=== PATIENT | female | born 1960 | race Caucasian/White ===

== ENCOUNTER 2017-08-29 06:53 | Observation (INO) | payer OTHER ==
[2017-08-27 09:20] LABS: BASOPHILS # (AUTO) 0.1 (0.0-0.1); BASOPHILS % 0.8 % (0.0-1.0); EOSINOPHILS # (AUTO) 0.1 (0.0-0.4); EOSINOPHILS % 0.8 % (0.0-6.0); HEMATOCRIT 41.1 % (34.2-44.1); HEMOGLOBIN 13.6 g/dL (12.0-16.0); LYMPHOCYTES # (AUTO) 1.6 (1.0-3.2); LYMPHOCYTES % 25.6 % (18.0-39.1); MEAN CORPUSCULAR HEMOGLOBIN 28.4 pg (28-32); MEAN CORPUSCULAR HGB CONC 33.1 g/dL (31-35); MEAN CORPUSCULAR VOLUME 85.8 fL (81-99); MONOCYTES # (AUTO) 0.6 (0.2-0.8); MONOCYTES % 9.1 % (4.4-11.3); NEUTROPHILS % 63.1 % (38.7-80.0); PLATELET COUNT 232 x10e3/uL (140-360); RED BLOOD COUNT 4.79 x10e6/uL (3.6-5.1); RED CELL DISTRIBUTION WIDTH 14.5 % (11.7-14.4)
[2017-08-27 09:29] LABS: INR 0.92; PROTHROMBIN TIME 11.6 seconds (11.9-14.5)
[2017-08-27 09:30] LABS: PARTIAL THROMBOPLASTIN TIME 28.3 seconds (23.8-35.5)
--- NOTE | 2017-08-27 09:30 | Diagnostic Imaging Report ---
PROCEDURE: X-RAY CHEST, TWO VIEWS COMPARISON: None. INDICATIONS: PREOPERATIVE CHEST X-RAY, CERVICAL SPINE FUSION SURGERY FINDINGS: LUNGS: No consolidations or edema. PLEURA: No effusions or pneumothorax. HEART \T\ MEDIASTINUM: The heart is within normal size-limits. BONES \T\ SOFT TISSUES: Mild degenerative changes of the spine. CONCLUSION: No acute thoracic abnormality. Lionel Escalona D.O. Dictated by: Lionel Escalona D.O. on 08/27/2017 at 9:31 Electronically approved by: Lionel Escalona D.O. on 08/27/2017 at 9:31
[2017-08-27 09:33] LABS: ANION GAP 9.5 mmol/L (8-16); BLOOD UREA NITROGEN 8 mg/dL (7-26); BUN/CREATININE RATIO 11 (6-25); CALCIUM 9.1 mg/dL (8.4-10.2); CARBON DIOXIDE 31 mmol/L (22-29); CHLORIDE 103 mmol/L (98-107); CREATININE, SERUM 0.73 mg/dL (0.57-1.11); EST GLOMERULAR FILTRATION RATE > 60 ML/MIN (60-); GLUCOSE 79 mg/dL (74-118); POTASSIUM 4.5 mmol/L (3.5-5.1); SODIUM 139 mmol/L (136-145)
[2017-08-29] VITALS (7 sets, daily range): BP systolic 100–131; BP diastolic 52–85
[~2017-08-29] VITALS: Ht 177.8 cm; Wt 136.1 kg
[~2017-08-29 06:53] MED LIST: BACITRACIN 50,000 UNIT VIAL ONE; BUPIVACAINE 0.5%/EPI 30 ML SDV INJ ONE; GELATIN SPONGE SZ 100 ONE; SYNTHROID50 MCG PO; THROMBIN FOR SOLN 5,000 UNIT VIAL ONE; TRAZODONE HCL100 MG PO
--- OUTSIDE RECORDS SUMMARY | 2017-08-29 06:56 | XMS REPORT ---
[facility] Address Unknown Phone Unavailable Care Team Providers [employer] Supervisor Name Role Phone BEVERLY JUÁREZ Unavailable Unavailable Problems This patient has no known problems. Allergies, Adverse Reactions, Alerts This patient has no known allergies or adverse reactions. Medications This patient has no known medications. Results Test Description Test Time Test Comments Text Results Atomic Results Result Comments CHEST 2 VIEWS [place] [address] Patient Name: CECILY ROJAS MR # : [id number] : 1960 Age/Sex: 56/F Req #: [id number] Adm Physician: Ordered by: BEVERLY JUÁREZ MD Report #: [id number] Location: OR Room/Bed: Procedure: [id number] DX/CHEST 2 VIEWS Exam Date: 08/27/17 Exam Time: 0915 REPORT STATUS: Signed PROCEDURE: X-RAY CHEST, TWO VIEWS COMPARISON: None. INDICATIONS: PREOPERATIVE CHEST X-RAY, CERVICAL SPINE FUSION SURGERY FINDINGS: LUNGS: No consolidations or edema. PLEURA: No effusions or pneumothorax. HEART T MEDIASTINUM: The heart is within normal size-limits. BONES T SOFT TISSUES: Mild degenerative changes of the spine. CONCLUSION: No acute thoracic abnormality. Milana Escalona D.O. Dictated by: Milana Escalona D.O. on 08/27/2017 at 9:31 Electronically approved by: Milana Escalona D.O. on 08/27/2017 at 9:31 Dictated By: MILANA ESCALONA DO 0 Transcribed By: RADHA on 08/27/17930 COPY TO: BEVERLY JUÁREZ MD
[2017-08-29] MEDS ORDERED: LIDOCAINE HCL (LTA) 4 ML SOLN ONE (07:40)
[2017-08-29] MEDS ORDERED: CEFAZOLIN SOD 2 GM/D5W 50ML 50 ML IV ONE (08:38)
[2017-08-29] MEDS: LACTATED RINGER'S 1,000 ML IV SCH ×2 (10:25→17:49)
[2017-08-29] MEDS ORDERED: ONDANSETRON HCL INJ 2 MG/ML VIAL IV PRN (10:30)
[2017-08-29] MEDS ORDERED: ACETAMINOPHEN 325 MG TAB PO PRN (10:30)
[2017-08-29] MEDS ORDERED: HYDROMORPHONE 2MG/ML INJ IV PRN (10:30)
[2017-08-29] MEDS ORDERED: PROMETHAZINE HCL (IM) 25 MG/ML VIAL IM PRN (10:30)
[2017-08-29] MEDS ORDERED: ZOLPIDEM TARTRATE 5 MG TAB PO PRN (10:30)
[2017-08-29] MEDS ORDERED: MAGNESIUM/ALUMINUM/SIMETHICONE 30 ML UDC PO PRN (10:30)
[2017-08-29] MEDS ORDERED: MORPHINE SULFATE 5 MG/ML VIAL IM PRN (10:30)
[2017-08-29] MEDS ORDERED: MORPHINE SULFATE 2 MG/ML SYR IM PRN (10:45)
[2017-08-29] MEDS ORDERED: FENTANYL CITRATE/PF 100MCG/2 ML INJ ONE ×2 (10:46→18:01)
--- NOTE | 2017-08-29 10:59 | Operative Report ---
DATE OF PROCEDURE: August 29, 2017 PREOPERATIVE DIAGNOSIS: C5-C6 and C6-C7 spondylosis and disk herniations with radiculopathy, M50.120. POSTOPERATIVE DIAGNOSIS: C5-C6 and C6-C7 spondylosis and disk herniations with radiculopathy, M50.120. PROCEDURES 1. C5-C6 anterior cervical diskectomy and microsurgical osteophyte resection and allograft fusion, 14095. 2. C6-C7 anterior cervical diskectomy and microsurgical osteophyte resection and allograft fusion, . 3. Preparation of cortical cancellous allograft, . 4. C5-C6 and C6-C7 anterior cervical plating, . ANESTHESIA: General. INDICATIONS: Patient is a 56-year-old woman who presents with a neck pain radiating to both arms and more recent radiculopathy in the left arm. She was taken to the operating room for 2-level anterior cervical decompression and fusion at C5-C6 and C6-C7. PROCEDURE: After induction of general anesthesia, the patient was placed on the operating table in the supine position. The right side of the neck was prepped and draped in a sterile fashion. The fluoroscopic C-arm was positioned in cross-table lateral orientation. A small transverse incision was created on the right side neck superimposed on the C6 vertebral body as determined by fluoroscopy. The platysma was divided in line with the incision. A subplatysmal dissection was carried out. An avascular plane of dissection was developed medial to sternocleidomastoid muscle, and was followed medial to the carotid sheath and to the anterior border the cervical spine. The deep cervical fascia was opened and the esophagus was retracted to the left. The attachments of the longus coli muscles to the anterolateral aspects of the vertebral bodies of C5-C6 and C6-C7 were divided. The anterior longitudinal ligament was resected. The anterior osteophytes were resected. Retraction was maintained with a self-retaining retractor. A good exposure was obtained. The recurrent laryngeal nerve was not encountered at any point during the surgery. [place] posts were inserted into C5 and C7. The [place] distractor was used to distract both disk spaces simultaneously. The anterior annuli of disks were incised with a #11 blade. The contents of both disks were thoroughly evacuated with angled curettes and pituitary rongeurs. The posterior osteophytes were meticulously drilled with a 2 mm cutting bur on a high-speed drill until they were completely removed. The posterior annulus of the disk, herniated disk material, and the posterior longitudinal ligament were resected layer by layer until the dura was fully exposed and decompressed. The medial aspects of the uncinate processes were resected bilaterally at both levels to further expose and decompress the origins of the corresponding C6 and C7 nerve roots. After satisfactory decompression had been achieved, the end-plates were prepared for fusion. Two pieces of tricortical iliac crest allograft were cut to the size and shapes of the disk spaces, and were inserted into the disk spaces under distraction and fluoroscopic guidance. The distraction was released and distraction posts were removed. A Synthes CSLP variable type anterior cervical plate was selected and was affixed to vertebral bodies of C5, C6 and C7 with 3 pairs of 14 x 4.35 mm screws. All screw holes were drilled and tapped under lateral fluoroscopic guidance. All screws were locked with the appropriate locking screws. An excellent construct was obtained. The wound was copiously irrigated with Bacitracin solution. Meticulous hemostasis was secured. Retractor was removed. The platysma was closed with 3-0 Vicryl sutures. The skin was closed with 4-0 Monocryl sutures in a subcuticular fashion. Steri-Strips and dressing were applied. The patient was awakened, extubated and taken to the postanesthesia care unit in stable condition. No intraoperative complications were encountered. Estimated blood loss was 30 mL. Job#: [id number] CAREN
[2017-08-29] MEDS ORDERED: ONDANSETRON HCL 4 MG ORAL DISINTEGRATING TAB PO PRN (11:15)
[2017-08-29] MEDS: CARISOPRODOL 350 MG TAB PO PRN ×2 (11:50→15:55)
[2017-08-29] MEDS: OXYCODONE/ACETAMINOPHEN 5-325 1 EACH TABLET PO PRN ×3 (11:50→21:30)
[2017-08-29] MEDS: CEFAZOLIN SOD 1 GM VIAL IV SCH ×2 (13:09→21:00)
[2017-08-29] MEDS ORDERED: CEPACOL SORE THROAT LOZENGES PO PRN (13:15)
[2017-08-29] MEDS ORDERED: CEFAZOLIN SOD 1 GM/NS 50ML 50 ML IV SCH (14:00)
[2017-08-29] MEDS ORDERED: GLYCOPYRROLATE INJ 1MG/ 5 ML SYR ONE (17:45)
[2017-08-29] MEDS ORDERED: ROCURONIUM BROMIDE 10 MG/ML 5ML VIAL ONE (17:45)
[2017-08-29] MEDS ORDERED: PROPOFOL IV EMULSION 10 MG/ML 20 ML VIAL ONE (17:45)
[2017-08-29] MEDS ORDERED: LIDOCAINE HCL 2% LOCAL INJ 5 ML SDV VIAL INJ ONE (17:45)
[2017-08-29] MEDS ORDERED: SEVOFLURANE INHAL SOLN 250 ML PEN BTL ONE (17:45)
[2017-08-29] MEDS ORDERED: NEOSTIGMINE 5 MG/5ML SYR ONE (17:45)
[2017-08-29] MEDS ORDERED: DEXAMETHASONE SOD PHOS INJ 4 MG/ML VIAL ONE (17:45)
[2017-08-29] MEDS ORDERED: ONDANSETRON HCL INJ 2 MG/ML VIAL ONE (17:45)
[2017-08-29] MEDS ORDERED: MIDAZOLAM HCL 2 MG/2 ML VIAL ONE (18:01)
[2017-08-29] MEDS ORDERED: ALBUTEROL/IPRATROPIUM 3 ML NEB ONE ×3 (19:25→22:29)
[2017-08-29] MEDS ORDERED: NON-FORMULARY MEDICATION (Trazodone Hcl 100 MG) PO SCH (21:00)
[2017-08-29] MEDS ORDERED: TRAZODONE HCL 50 MG TAB PO SCH (21:00)
[2017-08-30] MEDS: LACTATED RINGER'S 1,000 ML IV SCH (03:05)
[2017-08-30 05:00] VITALS: BP 111/59
[2017-08-30] MEDS: CEFAZOLIN SOD 1 GM VIAL IV SCH (05:51)
[2017-08-30] MEDS ORDERED: LEVOTHYROXINE SODIUM 50 MCG TAB PO SCH (06:00)
[2017-08-30] MEDS: OXYCODONE/ACETAMINOPHEN 5-325 1 EACH TABLET PO PRN (06:14)
--- NOTE | 2017-08-30 06:41 | Diagnostic Imaging Report ---
C-SPINE 2 VIEWS AP LATERAL Comparison: None Clinical history: Status post surgery Findings: Postsurgical change status post C5-C7 ACDF. Straightening the normal cervical lordosis with c-collar in place. Impression: Expected postsurgical changes status post C5-C7 ACDF. Signed by: Dr Elda Joiner MD on 08/30/2017 6:38 AM
[2017-08-30 08:23] VITALS: BP 126/71
== END 2017-08-30 08:48 | disposition home or self-care (01) ==
LOC: OR 06:53 → IMCU 10:55
PROVIDERS: ADMIT Neurological Surgery; ATTEND Neurological Surgery
DX: M50.122 Cervical disc disorder at C5-C6 level with radiculopathy (principal); M50.123 Cervical disc disorder at C6-C7 level with radiculopathy; M47.22 Other spondylosis with radiculopathy, cervical region; G47.33 Obstructive sleep apnea (adult) (pediatric); I10 Essential (primary) hypertension; J45.909 Unspecified asthma, uncomplicated; E03.9 Hypothyroidism, unspecified; F17.210 Nicotine dependence, cigarettes, uncomplicated
CPT/HCPCS: 20931; 22551; 22552; 22845; 36415; 71046; 72040; 77003; 80048; 85025; 85610; 85730; 86850; 86900; 88304; 93005; 94640; 94660 ×2; C1713 ×4; C1768; G0378 ×2; J0690 ×2; J1100; J2001; J2250; J2405